=== PATIENT | male | born 1950 | race Caucasian/White ===

== ENCOUNTER → 2016-06-19 | Outpatient (CLI) | payer MEDICARE ==
[~2016-06-19] MED LIST: ALDACTONE25 MG PO; BENTYL 20MG TAB20 MG PO; BUMETANIDE1 MG PO; BUMETANIDE2 MG PO; CLOPIDOGREL75 MG PO; CORDARONE 200M200 MG PO; COREG 3.125M3.125 MG PO; CRESTOR 10 MG T10 MG PO; CRESTOR40 MG PO; DIGOXIN125 MCG PO; ECOTRIN81 MG PO; FINASTERIDE5 MG PO; ISOSORBIDE MONO30 MG PO; KLONOPIN TAB 00.5 MG PO; KLOR-CON M2020 MEQ PO; LACTINEX PACKET1 PKT PO; LANOXIN125 MCG PO; LOPRESSOR 25 MG25 MG PO; MAGNESIUM OXID400 MG PO; MEN'S MULTI-VI1 EACH PO; METOLAZONE5 MG PO; MEXITIL CAP 20200 MG PO; MIDODRINE HCL5 MG PO; MONTELUKAST SOD10 MG PO; PLAVIX75 MG PO; PROTONIX 40 MG40 M1 PO; PROTONIX40 MG PO; TAMIFLU 75 MG C75 MG PO; ZANTAC 150 MG150 MG PO; ZANTAC150 MG PO; ZYLOPRIM 100 M100 MG PO
== END ==
LOC: LAB 10:18
PROVIDERS: Internal Medicine Nephrology
DX: E83.52 Hypercalcemia (principal); N18.3 Chronic kidney disease, stage 3 (moderate)
CPT/HCPCS: 36415; 80048; 82043; 82570; 83970; 84100

== ENCOUNTER 2016-06-29 11:18 | Inpatient (IN) | payer MEDICARE ==
[~2016-06-29] VITALS: Ht 167.6 cm; Wt 74.1 kg
[~2016-06-29 11:18] MED LIST changes: -ALDACTONE25 MG PO; -BENTYL 20MG TAB20 MG PO; -BUMETANIDE1 MG PO; -BUMETANIDE2 MG PO; -CLOPIDOGREL75 MG PO; -CORDARONE 200M200 MG PO; -COREG 3.125M3.125 MG PO; -CRESTOR 10 MG T10 MG PO; -CRESTOR40 MG PO; -DIGOXIN125 MCG PO; -ECOTRIN81 MG PO; -FINASTERIDE5 MG PO; -ISOSORBIDE MONO30 MG PO; -KLONOPIN TAB 00.5 MG PO; -KLOR-CON M2020 MEQ PO; -LACTINEX PACKET1 PKT PO; -LANOXIN125 MCG PO; -LOPRESSOR 25 MG25 MG PO; -MAGNESIUM OXID400 MG PO; -MEN'S MULTI-VI1 EACH PO; -METOLAZONE5 MG PO; -MEXITIL CAP 20200 MG PO; -MIDODRINE HCL5 MG PO; -MONTELUKAST SOD10 MG PO; -PROTONIX 40 MG40 M1 PO; -PROTONIX40 MG PO; -TAMIFLU 75 MG C75 MG PO; -ZANTAC 150 MG150 MG PO; -ZANTAC150 MG PO; -ZYLOPRIM 100 M100 MG PO
[2016-06-29 12:28] LABS: HEMOGLOBIN 15.4 gm/dl (14.0-17.5); RED BLOOD COUNT 4.81 M/UL (4.20-5.50); WHITE BLOOD COUNT 10.6 K/UL (4.5-11.0)
[2016-06-29] MEDS ORDERED: TAMIFLU 75 MG C75 MG PO (14:27)
[2016-06-29] MEDS ORDERED: MONTELUKAST SOD10 MG PO (14:28)
[2016-06-29] MEDS ORDERED: PROTONIX 40 MG40 M1 PO (14:28)
[2016-06-29] MEDS ORDERED: FINASTERIDE5 MG PO (14:29)
[2016-06-29] MEDS ORDERED: ZANTAC 150 MG150 MG PO (14:30)
[2016-06-29] MEDS ORDERED: ISOSORBIDE MONO30 MG PO (14:31)
[2016-06-29] MEDS ORDERED: DIGOXIN125 MCG PO (14:31)
[2016-06-29] MEDS ORDERED: ECOTRIN81 MG PO (14:32)
[2016-06-29] MEDS ORDERED: KLOR-CON M2020 MEQ PO (14:32)
[2016-06-29] MEDS ORDERED: BUMETANIDE2 MG PO (14:34)
[2016-06-29] MEDS ORDERED: BUMETANIDE1 MG PO (14:35)
[2016-06-29] MEDS ORDERED: CORDARONE 200M200 MG PO (14:35)
[2016-06-29] MEDS ORDERED: CRESTOR40 MG PO (14:36)
[2016-06-29] MEDS ORDERED: COREG 3.125M3.125 MG PO (14:36)
[2016-06-29] MEDS ORDERED: KLONOPIN TAB 00.5 MG PO (14:38)
[2016-06-29] MEDS ORDERED: METOLAZONE5 MG PO (14:38)
[2016-06-29] MEDS ORDERED: ALDACTONE25 MG PO (14:39)
[2016-06-29] MEDS ORDERED: CLOPIDOGREL75 MG PO (14:39)
[2016-06-29] MEDS ORDERED: ZYLOPRIM 100 M100 MG PO (14:40)
[2016-06-29] MEDS ORDERED: MAGNESIUM OXID400 MG PO (14:41)
[2016-06-29] MEDS ORDERED: CRESTOR 10 MG T10 MG PO (14:43)
[2016-06-30 03:44] LABS: HEMOGLOBIN 15.2 gm/dl (14.0-17.5); RED BLOOD COUNT 4.74 M/UL (4.20-5.50); WHITE BLOOD COUNT 12.9 K/UL (4.5-11.0)
[2016-07-03 04:20] LABS: HEMOGLOBIN 14.9 gm/dl (14.0-17.5); RED BLOOD COUNT 4.67 M/UL (4.20-5.50)
[2016-07-04] MEDS ORDERED: MEN'S MULTI-VI1 EACH PO (14:30)
[2016-07-04] MEDS ORDERED: MEXITIL CAP 20200 MG PO (19:57)
[2016-10-17] MEDS ORDERED: CRESTOR40 MG PO (08:49)
[2016-10-18] MEDS ORDERED: ZANTAC150 MG PO (08:56)
[2016-10-18] MEDS ORDERED: PROTONIX40 MG PO (09:01)
[2016-11-02] MEDS ORDERED: BENTYL 20MG TAB20 MG PO (15:04)
[2016-11-02] MEDS ORDERED: MIDODRINE HCL5 MG PO (15:05)
[2016-11-02] MEDS ORDERED: LACTINEX PACKET1 PKT PO (15:07)
[2016-11-02] MEDS ORDERED: LOPRESSOR 25 MG25 MG PO (15:10)
[2016-11-07] MEDS ORDERED: KLOR-CON M2020 MEQ PO (22:05)
== END 2016-07-04 20:30 | disposition home or self-care (01) | DRG 309 ==
LOC: ER1 11:18 → ZEROF 12:29 → CCU 12:29 → M/S 07-04 15:21
PROVIDERS: Emergency Medicine; Internal Medicine Cardiovascular Disease; ADMIT Internal Medicine Cardiovascular Disease
DX: I47.2 Ventricular tachycardia (principal); I50.22 Chronic systolic (congestive) heart failure; I13.0 Hypertensive heart and chronic kidney disease with heart failure and stage 1 through stage 4 chronic kidney disease, or unspecified chronic kidney disease; N17.9 Acute kidney failure, unspecified; E87.1 Hypo-osmolality and hyponatremia; I49.01 Ventricular fibrillation; J20.9 Acute bronchitis, unspecified; T46.2X5A Adverse effect of other antidysrhythmic drugs, initial encounter; E05.80 Other thyrotoxicosis without thyrotoxic crisis or storm; I25.5 Ischemic cardiomyopathy; N18.3 Chronic kidney disease, stage 3 (moderate); I25.10 Atherosclerotic heart disease of native coronary artery without angina pectoris; I27.2 Other secondary pulmonary hypertension; E87.6 Hypokalemia; E83.42 Hypomagnesemia; J44.9 Chronic obstructive pulmonary disease, unspecified; K21.9 Gastro-esophageal reflux disease without esophagitis; E78.5 Hyperlipidemia, unspecified; I08.1 Rheumatic disorders of both mitral and tricuspid valves; Z91.030 Bee allergy status; Y92.009 Unspecified place in unspecified non-institutional (private) residence as the place of occurrence of the external cause; Z87.891 Personal history of nicotine dependence; Z86.39 Personal history of other endocrine, nutritional and metabolic disease; Z95.5 Presence of coronary angioplasty implant and graft; Z90.49 Acquired absence of other specified parts of digestive tract; Z85.038 Personal history of other malignant neoplasm of large intestine; Z88.5 Allergy status to narcotic agent; Z88.8 Allergy status to other drugs, medicaments and biological substances; Z79.82 Long term (current) use of aspirin; Z79.01 Long term (current) use of anticoagulants; Z79.899 Other long term (current) drug therapy; Z95.810 Presence of automatic (implantable) cardiac defibrillator; Z81.8 Family history of other mental and behavioral disorders; Z82.49 Family history of ischemic heart disease and other diseases of the circulatory system; Z80.9 Family history of malignant neoplasm, unspecified
CPT/HCPCS: 36415; 71010; 80048; 80053; 80162; 82550; 82553; 83605; 83735; 83874; 83880; 84132; 84436; 84439; 84443; 84484; 85025; 85027; 85610; 85730; 93005; 96374; 96375; 96376; 99291; J0282; J1650; J2270; J2405; J2550; J7030

== ENCOUNTER → 2016-08-07 | Outpatient (CLI) | payer MEDICARE ==
[~2016-08-07] MED LIST changes: +ALDACTONE25 MG PO; +BENTYL 20MG TAB20 MG PO; +BUMETANIDE1 MG PO; +BUMETANIDE2 MG PO; +CLOPIDOGREL75 MG PO; +CORDARONE 200M200 MG PO; +COREG 3.125M3.125 MG PO; +CRESTOR 10 MG T10 MG PO; +CRESTOR40 MG PO; +DIGOXIN125 MCG PO; +ECOTRIN81 MG PO; +FINASTERIDE5 MG PO; +ISOSORBIDE MONO30 MG PO; +KLONOPIN TAB 00.5 MG PO; +KLOR-CON M2020 MEQ PO; +LACTINEX PACKET1 PKT PO; +LANOXIN125 MCG PO; +LOPRESSOR 25 MG25 MG PO; +MAGNESIUM OXID400 MG PO; +MEN'S MULTI-VI1 EACH PO; +METOLAZONE5 MG PO; +MEXITIL CAP 20200 MG PO; +MIDODRINE HCL5 MG PO; +MONTELUKAST SOD10 MG PO; +PROTONIX 40 MG40 M1 PO; +PROTONIX40 MG PO; +TAMIFLU 75 MG C75 MG PO; +ZANTAC 150 MG150 MG PO; +ZANTAC150 MG PO; +ZYLOPRIM 100 M100 MG PO
== END ==
LOC: LAB 10:39
PROVIDERS: Internal Medicine Nephrology
DX: N18.3 Chronic kidney disease, stage 3 (moderate) (principal); N25.81 Secondary hyperparathyroidism of renal origin
CPT/HCPCS: 36415; 80053; 83970; 84100

== ENCOUNTER 2016-08-27 19:56 | Observation (INO) | payer MEDICARE ==
[~2016-08-27] VITALS: Ht 167.6 cm; Wt 69.9 kg
[~2016-08-27 19:56] MED LIST changes: -BENTYL 20MG TAB20 MG PO; -LACTINEX PACKET1 PKT PO; -LANOXIN125 MCG PO; -LOPRESSOR 25 MG25 MG PO; -MIDODRINE HCL5 MG PO; -PROTONIX40 MG PO; -ZANTAC150 MG PO
[2016-08-27 22:39] LABS: HEMOGLOBIN 15.8 gm/dl (14.0-17.5); RED BLOOD COUNT 4.87 M/UL (4.20-5.50); WHITE BLOOD COUNT 11.4 K/UL (4.5-11.0)
[2016-08-28] MEDS ORDERED: LANOXIN125 MCG PO (10:36)
[2016-08-29] MEDS ORDERED: MEXITIL CAP 20200 MG PO (18:40)
[2016-10-17] MEDS ORDERED: CRESTOR40 MG PO (08:49)
[2016-10-18] MEDS ORDERED: ZANTAC150 MG PO (08:56)
[2016-10-18] MEDS ORDERED: PROTONIX40 MG PO (09:01)
[2016-11-02] MEDS ORDERED: BENTYL 20MG TAB20 MG PO (15:04)
[2016-11-02] MEDS ORDERED: MIDODRINE HCL5 MG PO (15:05)
[2016-11-02] MEDS ORDERED: LACTINEX PACKET1 PKT PO (15:07)
[2016-11-02] MEDS ORDERED: LOPRESSOR 25 MG25 MG PO (15:10)
[2016-11-07] MEDS ORDERED: KLOR-CON M2020 MEQ PO (22:05)
== END 2016-08-29 19:20 | disposition home or self-care (01) ==
LOC: ER1 19:56 → ZEROF 08-28 01:20 → PROG CARE 08-28 22:01
PROVIDERS: Emergency Medicine; ADMIT Internal Medicine
DX: I47.2 Ventricular tachycardia (principal); T82.119A Breakdown (mechanical) of unspecified cardiac electronic device, initial encounter; I12.9 Hypertensive chronic kidney disease with stage 1 through stage 4 chronic kidney disease, or unspecified chronic kidney disease; N18.3 Chronic kidney disease, stage 3 (moderate); I50.22 Chronic systolic (congestive) heart failure; I25.5 Ischemic cardiomyopathy; I25.10 Atherosclerotic heart disease of native coronary artery without angina pectoris; Z85.038 Personal history of other malignant neoplasm of large intestine; Z87.891 Personal history of nicotine dependence; Z88.8 Allergy status to other drugs, medicaments and biological substances; Z79.02 Long term (current) use of antithrombotics/antiplatelets; Z79.82 Long term (current) use of aspirin; Z79.899 Other long term (current) drug therapy
CPT/HCPCS: ECHO; 36415; 71010; 78452; 80048; 80053; 80162; 82550; 82553; 83735; 83874; 83880; 84443; 84484; 85025; 93005; 93306; 96374; 96376; 99285; A9505; G0378; J7030